=== PATIENT | male | born 1960 | race Caucasian/White ===

== ENCOUNTER → 2021-01-20 09:04 | Outpatient (CLI) | payer BC, SELFPAY ==
[2021-01-20 09:44] LABS: Add Manual Diff / Slide Review NO; Basophils Absolute Auto 0 /uL (0-100); Basophils Percent Auto 0.6 % (0-2); Eosinophils Absolute Auto 300 /uL (0-450); Eosinophils Percent Auto 5.2 % (2-4); Hemoglobin 15.1 g/dL (13.5-17.5); Lymphocytes Absolute Auto 2200 /uL (1100-4500); Mean Corpuscular HGB Conc 34.3 % (30-36); Mean Corpuscular Hemoglobin 31.4 PG (26-34); Mean Corpuscular Volume 91.4 fL (80-100); Monocytes Absolute Auto 500 /uL (0-900); Monocytes Percent Auto 9.2 % (3-14); Neutrophils Absolute Auto 2400 /uL (1500-7000); Platelet Count 165 X10^3/uL (150-400); Red Blood Cell Count 4.81 X10^6/uL (4.5-5.9); White Blood Cell Count 5.4 X10^3/uL (4.5-11.0)
[2021-01-20 10:54] LABS: Alanine Aminotransferase 24 IU/L (<50); Albumin 4.5 g/dL (3.5-5.0); Alkaline Phosphatase 45 U/L (38-126); Aspartate Aminotransferase 27 IU/L (17-59); BUN Creatinine Ratio 19.5 (6-22); Bilirubin Total 0.9 mg/dL (0.2-1.3); Blood Urea Nitrogen 17 mg/dL (9-20); Calcium 9.6 mg/dL (8.4-10.2); Carbon Dioxide 31 mmol/L (22-32); Chloride 103 mmol/L (98-107); Cholesterol 227 mg/dL (140-199); Estimated Glomerular Filt Rate > 60.0 mL/min (>60); Globulin 2.3 g/dL (1.7-4.1); Glucose 98 mg/dL (70-100); HDL Cholesterol 77 mg/dL (40-60); HEMOLYSIS < 15 (0-50); LDL Cholesterol Calculated 139 mg/dL (<100); Sodium 138 mmol/L (137-145); Total Protein 6.8 g/dL (6.3-8.2); Triglycerides 53 mg/dL (35-150)
[2021-01-20 11:13] LABS: Prostate Specific Antigen Scrn 1.07 ng/mL (0.1-4.0)
== END ==
PROVIDERS: PCP Family Medicine; Referring Provider Family Medicine; Visit Provider Family Medicine
DX: E78.5 Hyperlipidemia, unspecified (principal); Z12.5 Encounter for screening for malignant neoplasm of prostate; Z78.9 Other specified health status
CPT/HCPCS: 36415; 80053; 80061; 85025; G0103

== ENCOUNTER 2021-05-18 13:23 | Emergency (ER) | payer OTHER, SELFPAY ==
[2021-05-18] VITALS (8 sets, daily range): BP systolic 129–157; BP diastolic 68–83; PULSE 42–47; RESP 15–18; TEMP 36.1; O2SAT 97–100; BMI 21.5
--- NOTE | 2021-05-18 16:13 | ED_ITS ---
HPI - Neck Pain/Injury General Chief Complaint: Neck Pain/Injury Stated Complaint: pain in left side neck Time Seen by Provider: 05/18/21 16:02 Mode of arrival: Ambulatory History of Present Illness HPI Narrative: 60M nonsmoker with noncontributory medical history presents with left lateral neck pain gradually worsening over the past few days. He denies any runny nose, fever or chills. He denies any injury or suspicion of esophageal foreign body. He states that he has worsening pain with palpation and increasing pain when attempting to swallow. He denies any difficulty controlling secretions and has had no nausea or vomiting. He has had no chest pain or shortness of breath. He denies any history of alcohol or street drugs Related Data Previous Rx's Medication Instructions Recorded avanafil 200 mg tablet (Stendra) 50 mg PO DAILY PRN #3 tab 01/12/21 amoxicillin 875 mg-potassium 1 tab PO Q12H #20 tab 05/18/21 clavulanate 125 mg tablet Allergies Allergy/AdvReac Type Severity Reaction Status Date / Time No Known Drug Allergies Allergy Unverified 01/12/21 11:13 Review of Systems Review of Systems Narrative: GENERAL: Denies chills, fatigue, malaise, fever, sweats. HEENT: See HPI RESPIRATORY: Denies dyspnea, cough, wheezing, hemoptysis, sputum. CARDIOVASCULAR: Denies chest pain, palpitations, orthopnea, edema, GASTROINTESTINAL: Denies nausea, vomiting, abdominal pain, diarrhea, constipation, melena. : Denies dysuria, frequency, incontinence, hematuria, urinary retention. MUSCULOSKELETAL: denies weakness, joint pain, or bony pain SKIN: Denies rash, skin lesions, or other NEUROLOGIC: Denies weakness, headache, numbness, change in speech, confusion, seizures, incoordination. PSYCHIATRIC: No concerning psychosocial issues. 12 point review of systems is negative except for those stated above Patient History Medical History Chicken pox Erectile dysfunction Hearing loss Shoulder pain (~2019) Vegetarian diet Surgical History Anesthesia History of appendectomy (~1996) Family History Father Diabetes mellitus History of heart disease Hypertension Parkinson's disease Mother Hypertension Brother Hypertension Diabetes mellitus Brother Hypertension Diabetes mellitus Social History Smoking Status: Never smoker Smoking Status: Never smoker alcohol intake frequency: a few times a week Substance Use Type: does not use Exam Narrative Exam Narrative: GENERAL: [60 year old patient appears stated age. Well-developed patient, in mild distress. HEAD: Atraumatic. Normocephalic. EYES: Pupils equal round and reactive. Extraocular motions intact. No scleral icterus. No injection or drainage. ENT: Nose without bleeding, purulent drainage. Throat without erythema, tonsillar hypertrophy or exudate. Airway patent. NECK: Trachea midline. Left lateral neck tenderness, no obvious palpable mass, fluctuance no erythema or warmth. CARDIOVASCULAR: Regular rate and rhythm without murmurs, gallops, or rubs. RESPIRATORY: Clear to auscultation. Breath sounds equal bilaterally. No wheezes, rales, or rhonchi. GASTROINTESTINAL: Abdomen soft, non-tender, nondistended. EXTREMITIES: No edema or joint tenderness. BACK: Nontender without deformity or crepitance. No flank tenderness. NEURO: AOx3. SKIN: No rash or erythema of visible areas Initial Vital Signs Initial Vital Signs: Vital Signs Temperature 96.9 F L 05/18/21 13:34 Pulse Rate 45 L 05/18/21 13:34 Respiratory Rate 16 05/18/21 13:34 Blood Pressure 157/83 H 05/18/21 13:34 Pulse Oximetry 100 05/18/21 13:34 Course Orders Ordered: ED Orders 05/18/21 16:14 Strep Grp A by PCR Rapid Stat 05/18/21 16:48 CT soft tissue neck w con Stat 05/18/21 16:54 BMP [Basic Metabolic Panel] Stat CBC Auto Diff [Complete Blood Count AUTO DIFF] Stat Discontinued Medications Dexamethasone (Dexamethasone 10 Mg/Ml Vial) 20 mg PO NOW ONE Stop: 05/18/21 19:06 Last Admin: 05/18/21 19:07 Dose: 20 mg Documented by: DARRIN Sodium Chloride (Normal Saline 0.9%) 1,000 mls @ 1,000 mls/hr IV BOLUS ONE Stop: 05/18/21 17:47 Last Infusion: 05/18/21 18:26 Dose: 0 mls/hr Documented by: Admin: 05/18/21 17:02 Dose: 1,000 mls/hr Documented by: DARRIN Dexamethasone 20 mg/ Sodium (Chloride) 52 mls @ 208 mls/hr IV NOW ONE Stop: 05/18/21 18:42 Last Admin: 05/18/21 19:05 Dose: Not Given Documented by: DARRIN Ketorolac Tromethamine (Ketorolac 30 Mg/Ml Vial) 15 mg IV NOW ONE Stop: 05/18/21 16:49 Last Admin: 05/18/21 17:02 Dose: 15 mg Documented by: DARRIN Vital Signs Vital signs: Vital Signs - 8 hr 05/18/21 16:55 05/18/21 16:56 05/18/21 17:00 Pulse Rate 46 L 45 L 42 L Respiratory Rate 18 18 Blood Pressure 138/68 129/71 Pulse Oximetry 98 100 100 05/18/21 17:30 05/18/21 17:31 05/18/21 18:00 Pulse Rate 46 L 46 L 44 L Respiratory Rate 15 15 Blood Pressure 152/75 H Pulse Oximetry 100 97 100 05/18/21 19:00 Pulse Rate 47 L Respiratory Rate 16 Blood Pressure 146/77 H Pulse Oximetry 100 MDM - Neck Pain/Injury Lab Data Result diagrams: 05/18/21 16:54 05/18/21 16:54 Labs: Lab Results 05/18/21 05/18/21 05/18/21 Range/Units 16:14 16:54 16:54 WBC 6.3 (4.5-11.0) X10^3/uL RBC 4.62 (4.5-5.9) X10^6/uL Hgb 14.5 (13.5-17.5) g/dL Hct 42.1 (41-53) % MCV 91.3 (80-100) fL MCH 31.5 (26-34) PG MCHC 34.5 (30-36) % RDW 13.0 (11.6-14.8) % Plt Count 174 (150-400) X10^3/uL Neut % (Auto) 51.7 (50-75) % Lymph % (Auto) 34.0 (25-40) % Sunflower % (Auto) 7.3 (3-14) % Eos % (Auto) 6.4 H (2-4) % Baso % (Auto) 0.6 (0-2) % Neut # (Auto) 3300 (9094-9525) /uL Lymph # (Auto) 2100 (1240-3957) /uL Sunflower # (Auto) 500 (0-900) /uL Eos # (Auto) 400 (0-450) /uL Baso # (Auto) 0 (0-100) /uL Sodium 139 (137-145) mmol/L Potassium 4.2 (3.4-5.1) mmol/L Chloride 104 (98-107) mmol/L Carbon Dioxide 29 (22-32) mmol/L BUN 19 (9-20) mg/dL Creatinine 0.85 (0.66-1.25) mg/dL Estimated GFR > 60.0 (>60) mL/min BUN/Creatinine Ratio 22.4 H (6-22) Glucose 86 (70-100) mg/dL Calcium 9.3 (8.4-10.2) mg/dL Group A Strep (PCR) Negative (Negative) Imaging Data CT Soft Tissue Neck: Radiologist's Impression: [place] [address] CT Scan Report Signed Patient: Tacho Zuniga MR#: [id number] : 1960 Acct:[id number] Age/Sex: 60 / M Date of Service: 05/18/21 Loc: Accession Number: [id number] ?? Procedure: CT soft tissue neck w con Ordering Provider: Minesh Joshi D.O. PROCEDURE:? CT SOFT TISSUE NECK W CON ? INDICATIONS:? pain left nieck, swelling, hard to swallow, fullness ? TECHNIQUE:? After the administration of intravenous contrast, 3.0 mm axial sections acquired from the sella to the aortic arch.? Additional oblique axial 3.0 mm sections acquired through the pharynx.? 3 mm thick coronal and sagittal reformats were generated.? For radiation dose reduction, the following was used:? automated exposure control.? ? COMPARISON:? None. ? FINDINGS:? Image quality:? Excellent.? ? Lymph nodes:? No enlarged lymph nodes seen throughout the neck.? ? Vessels:? Visualized vasculature appears patent.? ? Neck spaces:? At the level of the false vocal folds, there is a possible mass lesion arising from the posterior pharyngeal wall extending to the superior process of the aryepiglottic folds and arytenoid cartilage measuring 1.2 x 1.5 by 1.3 cm causing narrowing of the airway posteriorly.? ? The oropharynx, nasopharynx, and pharynx demonstrate no other mucosal lesions.? The vocal cords, pyriform sinuses, epiglottis, vallecula, and tongue base all appear normal.? Extramucosal spaces appear unremarkable.? ? Glands:? The parotid and submandibular glands appear normal.? Thyroid gland is within normal limits..? ? Miscellaneous:? Visualized brain and orbits appear normal.? Lung apices appear clear.? Superficial soft tissues appear normal. ? Bones:? No suspicious bony lesions.? Visualized sinuses and mastoids appear unremarkable. ? ? ? IMPRESSION:? ? 1. Findings suspicious for posterior laryngeal mass measuring up to 1.5 cm and narrowing the airway posteriorly. ? 2. No evidence of adenopathy. ? 3. No superficial mass in the area of indicated fullness. ? 4. ENT consult and direct visualization is recommended.? Dictated by: Litzy Blair M.D. on 05/18/2021 at 18:00 ? ? Approved by: Litzy Blair M.D. on 05/18/2021 at 18:24 ? MDM Narrative Medical decision making narrative: patient largely healthy baseline presents with presence of increasing pain in left anterior neck over past few days in the absence of injury or systemic findings. Does have some pain on swallowing but controls his secretions and some drink without difficulty. There are no fever or chills and denies any weakness. He has no trouble breathing whatsoever. Imaging demonstrates a 1.5 cm mass. Discussion with ENT recommends treatment with steroids and antibiotics and close follow-up for scope and possible biopsy patient understands the plan and diagnosis. He understands the inherent difficulty in distinguishing between infectious and neoplastic versus other as well as goal to treat for infectious and inflammatory symptoms initially and follow-up closely. He has been given extensive return precautions and understands this as evidenced by his ability to verbalize them back. Questions answered to his apparent satisfaction Discharge Plan Departure Patient Disposition: Home Clinical Impression: Throat mass Activity Restrictions/Additional Instructions: *You have been diagnosed with [throat mass, at this time it is unclear if this is abscess or neoplasm. As we discussed we will initiate steroids and antibiotics today and he will follow closely with local [facility] whose information as below *What to do: *Please continue to take your regular medications as directed. [x] New medication prescriptions sent to your pharmacy: [ [facility]] [ ] New medication written as a paper prescription [ ] No new medications given *Please follow up with Dr. Dwason at [facility], call for an appointment on Friday morning. Let them know you were seen in the Emergency Department and that we ask that you be seen in follow up. We will electronically transmit a record of today's note *Return to Emergency Department if you should have any new, worsening or concerning symptoms, such as difficulty breathing, inability to swallow or control your secretions, or other bothersome symptoms. Prescriptions: New amoxicillin-pot clavulanate 875-125 mg tablet 1 tab PO Q12H Qty: 20 0RF No Action Stendra 200 mg tablet 50 mg PO DAILY PRN (Reason: sexual activity) Qty: 3 3RF Referrals: Davon Dawson MD [Physician] - Telly Barnett MD [Primary Care Provider] -
[2021-05-18 16:47] LABS: Strep Grp A by PCR Rapid Negative (Negative)
--- NOTE | 2021-05-18 16:48 | DI.CT.S_ITS ---
PROCEDURE: CT SOFT TISSUE NECK W CON INDICATIONS: pain left nieck, swelling, hard to swallow, fullness TECHNIQUE: After the administration of intravenous contrast, 3.0 mm axial sections acquired from the sella to the aortic arch. Additional oblique axial 3.0 mm sections acquired through the pharynx. 3 mm thick coronal and sagittal reformats were generated. For radiation dose reduction, the following was used: automated exposure control. COMPARISON: None. FINDINGS: Image quality: Excellent. Lymph nodes: No enlarged lymph nodes seen throughout the neck. Vessels: Visualized vasculature appears patent. Neck spaces: At the level of the false vocal folds, there is a possible mass lesion arising from the posterior pharyngeal wall extending to the superior process of the aryepiglottic folds and arytenoid cartilage measuring 1.2 x 1.5 by 1.3 cm causing narrowing of the airway posteriorly. The oropharynx, nasopharynx, and pharynx demonstrate no other mucosal lesions. The vocal cords, pyriform sinuses, epiglottis, vallecula, and tongue base all appear normal. Extramucosal spaces appear unremarkable. Glands: The parotid and submandibular glands appear normal. Thyroid gland is within normal limits.. Miscellaneous: Visualized brain and orbits appear normal. Lung apices appear clear. Superficial soft tissues appear normal. Bones: No suspicious bony lesions. Visualized sinuses and mastoids appear unremarkable. IMPRESSION: 1. Findings suspicious for posterior laryngeal mass measuring up to 1.5 cm and narrowing the airway posteriorly. 2. No evidence of adenopathy. 3. No superficial mass in the area of indicated fullness. 4. ENT consult and direct visualization is recommended. Dictated by: Litzy Blair M.D. on 05/18/2021 at 18:00 Approved by: Litzy Blair M.D. on 05/18/2021 at 18:24
[2021-05-18 17:00] LABS: Add Manual Diff / Slide Review NO; Basophils Absolute Auto 0 /uL (0-100); Basophils Percent Auto 0.6 % (0-2); Eosinophils Absolute Auto 400 /uL (0-450); Eosinophils Percent Auto 6.4 % (2-4); Hematocrit 42.1 % (41-53); Hemoglobin 14.5 g/dL (13.5-17.5); Lymphocytes Absolute Auto 2100 /uL (1100-4500); Mean Corpuscular HGB Conc 34.5 % (30-36); Mean Corpuscular Hemoglobin 31.5 PG (26-34); Mean Corpuscular Volume 91.3 fL (80-100); Monocytes Absolute Auto 500 /uL (0-900); Monocytes Percent Auto 7.3 % (3-14); Neutrophils Absolute Auto 3300 /uL (1500-7000); Neutrophils Percent Auto 51.7 % (50-75); Platelet Count 174 X10^3/uL (150-400); Red Blood Cell Count 4.62 X10^6/uL (4.5-5.9); White Blood Cell Count 6.3 X10^3/uL (4.5-11.0)
[2021-05-18] MEDS: SODIUM CHLORIDE 0.9% 1,000 ML 1000 ML IV (17:02)
[2021-05-18] MEDS: KETOROLAC 30 MG/ML VIAL 15 MG IV (17:02)
[2021-05-18 17:26] LABS: BUN Creatinine Ratio 22.4 (6-22); Blood Urea Nitrogen 19 mg/dL (9-20); Calcium 9.3 mg/dL (8.4-10.2); Carbon Dioxide 29 mmol/L (22-32); Chloride 104 mmol/L (98-107); Estimated Glomerular Filt Rate > 60.0 mL/min (>60); Glucose 86 mg/dL (70-100); HEMOLYSIS < 15 (0-50); Potassium 4.2 mmol/L (3.4-5.1); Sodium 139 mmol/L (137-145)
[2021-05-18] MEDS: DEXAMETHASONE 10 MG/ML VIAL 20 MG PO (19:07)
== END 2021-05-18 19:08 | disposition home or self-care (01) ==
PROVIDERS: Emergency Provider Emergency Medicine; PCP Family Medicine
DX: J39.2 Other diseases of pharynx (principal)
CPT/HCPCS: 70491; 80048; 85025; 87651; 96361; 96374; 99284; J1100; J1885

== ENCOUNTER → 2022-03-13 07:53 | Outpatient (CLI) | payer OTHER, SELFPAY ==
[2022-03-13 08:35] LABS: Add Manual Diff / Slide Review NO; Basophils Absolute Auto 0 /uL (0-100); Basophils Percent Auto 0.5 % (0-2); Eosinophils Absolute Auto 200 /uL (0-450); Eosinophils Percent Auto 4.8 % (2-4); Hematocrit 43.1 % (41-53); Hemoglobin 14.6 g/dL (13.5-17.5); Lymphocytes Absolute Auto 2100 /uL (1100-4500); Lymphocytes Percent Auto 46.2 % (25-40); Mean Corpuscular HGB Conc 33.8 % (30-36); Mean Corpuscular Hemoglobin 30.9 PG (26-34); Mean Corpuscular Volume 91.5 fL (80-100); Monocytes Absolute Auto 400 /uL (0-900); Monocytes Percent Auto 9.5 % (3-14); Neutrophils Absolute Auto 1800 /uL (1500-7000); Platelet Count 177 X10^3/uL (150-400); Red Blood Cell Count 4.71 X10^6/uL (4.5-5.9); Red Cell Distribution Width 12.9 % (11.6-14.8); White Blood Cell Count 4.6 X10^3/uL (4.5-11.0)
[2022-03-13 09:07] LABS: Alanine Aminotransferase 21 IU/L (<50); Albumin 4.5 g/dL (3.5-5.0); Albumin Globulin Ratio 1.8 (1.0-2.8); Alkaline Phosphatase 49 U/L (38-126); Aspartate Aminotransferase 24 IU/L (17-59); Bilirubin Total 0.6 mg/dL (0.2-1.3); Blood Urea Nitrogen 23 mg/dL (9-20); Calcium 9.2 mg/dL (8.4-10.2); Carbon Dioxide 30 mmol/L (22-32); Chloride 101 mmol/L (98-107); Cholesterol 230 mg/dL (140-199); Estimated Glomerular Filt Rate > 60 mL/min (>60); Globulin 2.5 g/dL (1.7-4.1); Glucose 88 mg/dL (80-110); HDL Cholesterol 71 mg/dL (40-60); HEMOLYSIS < 15 (0-50); LDL Cholesterol Calculated 146 mg/dL (<100); Sodium 141 mmol/L (137-145); Triglycerides 65 mg/dL (35-150)
[2022-03-13 09:08] LABS: Potassium 4.1 mmol/L (3.4-5.1)
[2022-03-13 09:18] LABS: LDL Cholesterol Direct 119 mg/dL (<100)
[2022-03-13 09:37] LABS: Prostate Specific Antigen Scrn 0.998 ng/mL (0.1-4.0)
[2022-03-15 03:37] LABS: Lipoprotein (a) 113.6 nmol/L (<75.0)
== END ==
PROVIDERS: PCP Family Medicine; Referring Provider Family Medicine; Visit Provider Family Medicine
DX: E78.5 Hyperlipidemia, unspecified (principal); N52.9 Male erectile dysfunction, unspecified; Z78.9 Other specified health status; Z12.5 Encounter for screening for malignant neoplasm of prostate
CPT/HCPCS: 36415; 80053; 80061; 82306; 83695; 83721; 85025; G0103

== ENCOUNTER 2022-05-09 07:45 | Day surgery (SDC) | payer OTHER, SELFPAY ==
--- NOTE | 2022-05-09 | PATH_ITS ---
[facility] Accession Number: [id number] No. of containers..01 Tissue . 01 Material submitted: . colon - ASCENDING COLON POLYP . 01 Diagnosis: Ascending Colon, Polyp, Biopsy: Tubular adenoma. [facility] 05/14/2022 0951 Local . 01 Electronically signed: . Adrienne Trotter MD, Pathologist NPI- [id number] . 01 Gross description: . ASCENDING COLON POLYP: Received in formalin are 3 fragment(s) of coleman, soft tissue measuring 0.5 x 0.3 x 0.2 cm to 0.2 x 0.1 x 0.1 cm submitted entirely in 1 cassette(s) /CPE 05/10/2022 0638 Local . 01 Pathologist provided ICD-10: D12.2 . 01 CPT . 378325 Specimen Comment: A courtesy copy of this report has been sent to [phone] Performed at: 01 [facility] [address] [place] [address], [place], [place] [id number] MD Eric Muñoz MD Phone: [phone]
[2022-05-09 07:56] VITALS: BP 125/75; PULSE 58; RESP 16; TEMP 36.6; O2SAT 100; BMI 21.5
--- NOTE | 2022-05-09 08:03 | PM.HP.1 ---
History of Present Illness History of Present Illness Date Patient Seen: 05/09/22 Time Patient Seen: 08:03 Chief complaint: SDC Narrative: Tacho is a 61-year-old man who is here for colonoscopy. His last 1 was 10 years ago and was normal. No family history that he knows of of colon cancer. Patient History Medical History Chicken pox Erectile dysfunction Hearing loss Shoulder pain (~2019) Vegetarian diet Surgical History Anesthesia History of appendectomy (~1996) Family & Social History Family History Father Diabetes mellitus History of heart disease Hypertension Parkinson's disease Mother Hypertension Brother Hypertension Diabetes mellitus Brother Hypertension Diabetes mellitus Tobacco & Substance use: Smoking Status Never smoker alcohol intake frequency a few times a week Substance Use Type does not use Meds Home Medications and Allergies Home Medications Medication Instructions Recorded Confirmed Type sildenafil 25 mg tablet 25 mg PO DAILY #30 tabs 03/12/22 05/09/22 Rx Allergies Allergy/AdvReac Type Severity Reaction Status Date / Time No Known Drug Allergies Allergy Verified 05/09/22 07:52 Exam Const General: healthy appearing Assessment & Plan Assessment and plan (1) Colon cancer screening: Status: Acute Plan We reviewed the risks, benefits and rationale for colonoscopy for colon cancer and he would like to proceed. Time Spent With Patient Critical Care time: I spent a total of [] minutes of critical care time on this patient's care today; this time is exclusive of procedural time.
[2022-05-09] MEDS: LACTATED RINGERS 1,000 ML 42 ML IV (08:07)
--- NOTE | 2022-05-09 08:40 | PM.OP.COLON ---
Operative Date/Time/Diagnoses Date of procedure: 05/09/22 Time of procedure: 08:40 Pre-op diagnosis: Colon cancer screening Post-op diagnosis: same Procedure & Clinicians Study performed: Colonoscopy Same procedure as scheduled: Yes Surgeon: Khalif Patton Procedure Notes Procedure in detail: Surgeon: Khalif Patton MD Anesthesia: Nirali Hoyt CRNA Procedure: The patient was brought to the endoscopy suite, placed in left lateral decubitus position. The patient was connected to monitoring devices. A time-out was performed. Sedation was administered. Once the patient was adequately sedated, a digital rectal exam was performed and was normal. The scope was then inserted and advanced to the cecum where the appendiceal orifice was identified and photographed. The scope was then slowly withdrawn over greater than 6 minutes. The mucosa was thoroughly inspected. There was a 8 mm polyp in the ascending colon removed with a cold snare. The rest of the colon was normal. The scope was retroflexed in the rectum. No other abnormalities were seen. The scope was straightened and removed. The patient was awakened and brought to recovery. Scope withdrawal time: 9 minutes Sedation time: 20 minutes EBL: 2 mL Findings: 8 mm polyp in the ascending colon Post-procedure Follow up: weeks Disposition: PACU
[2022-05-09 08:42] VITALS: BP 103/64; PULSE 60; RESP 15; TEMP 36.6; O2SAT 100
[2022-05-09 08:46] VITALS: BP 101/68; PULSE 58; RESP 14; O2SAT 100
[2022-05-09 08:50] VITALS: BP 109/63; PULSE 57; RESP 16; TEMP 36.7; O2SAT 100
[2022-05-09 08:57] VITALS: BP 112/68; PULSE 54; RESP 16; TEMP 36.6; O2SAT 100
== END 2022-05-09 09:11 | disposition home or self-care (01) ==
PROVIDERS: PCP Family Medicine; Referring Provider Surgery; Visit Provider Surgery
PROC: 0DJD8ZZ Inspection of Lower Intestinal Tract, Via Natural or Artificial Opening Endoscopic (ICD-10-PCS; CPT 45378; principal; 2022-05-09 08:45)
DX: Z12.11 Encounter for screening for malignant neoplasm of colon (principal); D12.2 Benign neoplasm of ascending colon
CPT/HCPCS: 45385; J2704

== ENCOUNTER → 2022-10-11 07:47 | Outpatient (CLI) | payer OTHER, SELFPAY ==
[2022-10-11 09:23] LABS: Cholesterol 213 mg/dL (140-199); HDL Cholesterol 69 mg/dL (40-60); LDL Cholesterol Calculated 126 mg/dL (<100); Triglycerides 90 mg/dL (35-150)
== END ==
PROVIDERS: PCP Family Medicine; Referring Provider Family Medicine; Visit Provider Family Medicine
DX: E78.5 Hyperlipidemia, unspecified (principal); E78.9 Disorder of lipoprotein metabolism, unspecified
CPT/HCPCS: 36415; 80061; 83704

== ENCOUNTER → 2022-10-29 07:34 | Outpatient (CLI) | payer OTHER, SELFPAY ==
[2022-10-29 10:06] LABS: Alanine Aminotransferase 23 IU/L (<50)
[2022-10-29 19:05] LABS: LDL Cholesterol Direct 120 mg/dL (<100)
[2022-10-31 04:09] LABS: Lipoprotein (a) 132.7 nmol/L (<75.0)
== END ==
PROVIDERS: PCP Family Medicine; Referring Provider Family Medicine; Visit Provider Family Medicine
DX: E78.9 Disorder of lipoprotein metabolism, unspecified (principal)
CPT/HCPCS: 83695; 83721; 84460

== ENCOUNTER → 2023-03-07 07:18 | Outpatient (CLI) | payer OTHER, SELFPAY ==
[2023-03-07 09:22] LABS: Free T4, Direct Thyroxine 0.98 ng/dL (0.78-2.19)
[2023-03-07 09:36] LABS: Thyroid Stimulating Hormone 4.22 uIU/mL (0.47-4.68)
[2023-03-10 08:16] LABS: Cholesterol, Total 206 mg/dL (100-199); HDL-Cholesterol 73 mg/dL (>39); HDL-Particle (Total) 30.9 umol/L (>=30.5); LDL Particle 1286 nmol/L (<1000); LDL Size 21.6 nm (>20.5); LDL-Cholsterol 119 mg/dL (0-99); LP-IR Score <25 (<=45); Small LDL- Particle 223 nmol/L (<=527); Triglycerides 76 mg/dL (0-149)
== END ==
PROVIDERS: PCP Family Medicine; Referring Provider Internal Medicine Cardiovascular Disease; Visit Provider Internal Medicine Cardiovascular Disease
DX: E78.5 Hyperlipidemia, unspecified (principal)
CPT/HCPCS: 36415; 80061; 83704; 84439; 84443

== ENCOUNTER 2024-06-29 09:55 | Emergency (ER) | payer BC, SELFPAY ==
[2024-06-29] VITALS (10 sets, daily range): BP systolic 106–132; BP diastolic 56–68; PULSE 44–51; RESP 14–20; TEMP 36.2; O2SAT 99–100; BMI 21.5
--- NOTE | 2024-06-29 10:26 | DI.RAD.S_ITS ---
PROCEDURE: XR CHEST 1V INDICATIONS: chest pain TECHNIQUE: One view of the chest was acquired. COMPARISON: None. FINDINGS: Surgical changes and devices: EKG leads overlie the chest. Lungs and pleura: There is linear parenchymal stranding at the left lung base, compatible with atelectasis or scarring. The lungs are otherwise clear. No pleural effusions or pneumothorax. Mediastinum: Mediastinal contours appear normal. Heart size is normal. Bones and chest wall: No suspicious bony lesions. Overlying soft tissues appear unremarkable. IMPRESSION: No acute cardiopulmonary abnormality is seen. Dictated by: Glenroy Lambert M.D. on 06/29/2024 at 11:23 Approved by: Glenroy Lambert M.D. on 06/29/2024 at 11:30
--- NOTE | 2024-06-29 10:26 | EKG_ITS ---
[address] [address] Test Date: 2024-06-29 Pat Name: Tacho Zuniga Department: Room: Gender: Male Tennis Coach: TRISTAN : 1960 Requested By: Order Number: [id number] Reading MD: Cj Amos Measurements Intervals [place] Rate: 45 P: 50 DC: 138 QRS: 81 QRSD: 106 T: -26 QT: 466 QTc: 403 Interpretive Statements Sinus bradycardia RSR' or QR pattern in V1 suggests right ventricular conduction delay T wave abnormality, consider inferior ischemia Electronically Signed On 06-30-2024 17:39:40 PDT by Cj Amos
--- NOTE | 2024-06-29 10:53 | ED.SYNCOPE ---
HPI - Syncope General Chief Complaint: Syncope Stated Complaint: Right side stomach pain , passed out last night Time Seen by Provider: 06/29/24 10:28 Source: patient Mode of arrival: Ambulatory History of Present Illness HPI narrative: 63-year-old gentleman history of appendectomy, dyslipidemia, erectile dysfunction, had 2 syncopal episodes last evening but all started with right-sided abdominal pain whereby he broke out soaked in his P [place] for which the pain then subsided. He had to go urinate and he believes he passed out after he urinated. Pt al morning when he got up from the bed he was found on the ground again. He is now complaining of soreness in the back of the head but his abdominal pain has resolved. He did take Tadafil last evening. Patient denies chest pain shortness of breath dyspnea on exertion leg swelling or leg pain or recent long-distance travel or any hx of dvt or PE. Other than what is stated 14 point review of system is negative. Related Data Previous Rx's Medication Instructions Recorded tadalafil 2.5 mg tablet 2.5 mg PO DAILY PRN sexual 01/05/24 activity #90 tabs Allergies Allergy/AdvReac Type Severity Reaction Status Date / Time No Known Drug Allergies Allergy Verified 06/29/24 10:16 Review of Systems Review of Systems ROS Unobtainable: All systems reviewed & are unremarkable except as noted in HPI and below Patient History Medical History Chicken pox Erectile dysfunction Hearing loss Shoulder pain (~2019) Vegetarian diet Surgical History Anesthesia History of appendectomy (~1996) Family History Father Diabetes mellitus History of heart disease Hypertension Parkinson's disease Mother Hypertension Brother Hypertension Diabetes mellitus Brother Hypertension Diabetes mellitus Social History household members: spouse alcohol intake: current alcohol intake frequency: a few times a week Exam Narrative Exam Narrative: GENERAL: [63] year old patient appears stated age. Well-developed patient, in mild distress. HEAD: Atraumatic. Normocephalic. EYES: Pupils equal round and reactive. Extraocular motions intact. No scleral icterus. No injection or drainage. ENT: Nose without bleeding, purulent drainage. Throat without erythema, tonsillar hypertrophy or exudate. Airway patent. NECK: Trachea midline. Non tender CARDIOVASCULAR: Regular rate and rhythm without murmurs, gallops, or rubs. RESPIRATORY: Clear to auscultation. Breath sounds equal bilaterally. No wheezes, rales, or rhonchi. GASTROINTESTINAL: Abdomen soft, non-tender, nondistended. EXTREMITIES: No edema or joint tenderness. BACK: Nontender without deformity or crepitance. No flank tenderness. NEURO: AOx3. Nonfocal neuro exam gcs 15/ neg romberg, F to N test intact, Opposite heel to cota intact SKIN: No rash or erythema of visible areas Initial Vital Signs Initial Vital Signs: Vital Signs Temperature 97.1 F L 06/29/24 10:16 Pulse Rate 51 L 06/29/24 10:16 Respiratory Rate 14 06/29/24 10:16 Blood Pressure 114/59 L 06/29/24 10:16 Pulse Oximetry 100 06/29/24 10:16 Oxygen Delivery Method Room Air 06/29/24 10:16 Course Orders Ordered: ED Orders 06/29/24 10:26 XR chest 1V Stat EKG-12 Lead Stat 06/29/24 10:45 Complete Blood Count AUTO DIFF Stat Comprehensive Metabolic Panel Stat Lipase Stat Magnesium Stat NT-proBNP (BNP-Adult 18+) Stat PTT Partial Thromboplastin James Stat Prothrombin Time INR Stat TSH [Thyroid Stimulating Hormone] Stat Troponin & CK Cardiac Panel Stat 06/29/24 10:53 CT head/brain wo con Stat 06/29/24 10:54 CT abdomen pelvis w con Stat Discontinued Medications Lactated Ringer's (Lactated Ringers) 500 mls @ 1,000 mls/hr IV BOLUS ONE Stop: 06/29/24 11:22 Last Admin: 06/29/24 11:17 Dose: 1,000 mls/hr Documented By: LYNN Vital Signs Vital signs: Vital Signs - 8 hr 06/29/24 10:16 06/29/24 10:30 06/29/24 10:30 Temperature 97.1 F L Pulse Rate 51 L 47 L Pulse Rate [Orthostatic Lying] Pulse Rate [Orthostatic Sitting] Pulse Rate [Orthostatic Standing] Respiratory Rate 14 Blood Pressure 114/59 L 128/61 Blood Pressure [Orthostatic Lying] Blood Pressure [Orthostatic Sitting] Blood Pressure [Orthostatic Standing] Pulse Oximetry 100 100 Oxygen Delivery Method Room Air 06/29/24 11:00 06/29/24 11:00 06/29/24 11:23 Temperature Pulse Rate 45 L Pulse Rate [Orthostatic Lying] 46 L Pulse Rate [Orthostatic Sitting] 47 L Pulse Rate [Orthostatic Standing] 50 L Respiratory Rate Blood Pressure 114/58 L Blood Pressure [Orthostatic Lying] 111/57 L Blood Pressure [Orthostatic Sitting] 117/58 L Blood Pressure [Orthostatic Standing] 132/66 Pulse Oximetry 100 Oxygen Delivery Method MDM - Syncope Lab Data 06/29/24 10:45 06/29/24 10:45 Labs: Lab Results 06/29/24 Range/Units 10:45 WBC 5.6 (4.5-11.0) X10^3/uL RBC 4.59 (4.5-5.9) X10^6/uL Hgb 14.7 (13.5-17.5) g/dL Hct 42.6 (41-53) % MCV 92.9 (80-100) fL MCH 32.0 (26-34) PG MCHC 34.5 (30-36) % RDW 12.8 (11.6-14.8) % Plt Count 159 (150-400) X10^3/uL Neut % (Auto) 65.0 (50-75) % Lymph % (Auto) 26.7 (25-40) % [place] % (Auto) 6.9 (3-14) % Eos % (Auto) 0.8 L (2-4) % Baso % (Auto) 0.6 (0-2) % Neut # (Auto) 3600 (4561-9041) /uL Lymph # (Auto) 1500 (7800-7236) /uL [place] # (Auto) 400 (0-900) /uL Eos # (Auto) 0 (0-450) /uL Baso # (Auto) 0 (0-100) /uL PT 10.5 (9.4-12.5) SECONDS INR 0.9 (0.9-1.3) APTT 35 (25.1-36.5) SECONDS Sodium 137 (137-145) mmol/L Potassium 4.4 (3.4-5.1) mmol/L Chloride 102 (98-107) mmol/L Carbon Dioxide 29 (22-32) mmol/L BUN 22 H (9-20) mg/dL Creatinine 0.94 (0.66-1.25) mg/dL Estimated GFR > 60 (>60) mL/min BUN/Creatinine Ratio 23.4 H (6-22) Glucose 110 H (70-99) mg/dL Calcium 9.3 (8.4-10.2) mg/dL Magnesium 2.0 (1.6-2.3) mg/dL Total Bilirubin 1.1 (0.2-1.3) mg/dL AST 33 (17-59) IU/L ALT 31 (<50) IU/L Alkaline Phosphatase 57 (38-126) U/L Total Creatine Kinase 105 (55-170) U/L Troponin I < 0.012 (0.01-0.034) ng/mL NT-Pro-B Natriuret Pep 175 H (<125) pg/mL Total Protein 7.0 (6.3-8.2) g/dL Albumin 4.6 (3.5-5.0) g/dL Globulin 2.4 (1.7-4.1) g/dL Albumin/Globulin Ratio 1.9 (1.0-2.8) Lipase 49 (23-300) U/L Urine Dip Bedside Urine Glucose Negative Bedside Urine Bilirubin - Negative Bedside Urine Ketone - Negative Urine Specific [place] 1.005 Bedside Urine Occult Blood - Negative Bedside Urine pH 8.5 Bedside Urine Protein +/- 15 Bedside Urine Urobilinogen - Negative Bedside Urine Nitrite - Negative Bedside Urine Leukocytes - Negative Esterase Imaging Data CT scan - head: Radiologist's Impression: Patient: Tacho Zuniga MR#: [id number] : 1960 Acct:[id number] Age/Sex: 63 / M Date of Service: 06/29/24 Loc: ED Accession Number: [id number] Procedure: CT head/brain wo con Ordering Provider: Ulysses Guy D.O. PROCEDURE: CT HEAD/BRAIN WO CON INDICATIONS: syncope/ headache TECHNIQUE: Noncontrast 4.5 mm thick angled axial sections acquired from the foramen magnum to the vertex, with coronal and sagittal reformats. For radiation dose reduction, the following was used: automated exposure control, adjustment of mA and/or kV according to patient size. COMPARISON: None. FINDINGS: Image quality: Diagnostic. CSF spaces: Basal cisterns are patent. No extra-axial fluid collections. Ventricles are normal in size and shape. Brain: No midline shift. No intracranial mass effect or hemorrhage. Dale-white matter interface is normal. Skull and face: Calvarium and visualized facial bones are intact, without suspicious lesions. Sinuses: Visualized sinuses and mastoids are clear. IMPRESSION: No acute intracranial pathology. Dictated by: Mirza Wesley M.D. on 06/29/2024 at 11:25 Approved by: Mirza Wesley M.D. on 06/29/2024 at 11:27 [place] [address] CT Scan Report Signed Patient: Tacho Zuniga MR#: [id number] : 1960 Acct:[id number] Age/Sex: 63 / M Date of Service: 06/29/24 Loc: ED Accession Number: [id number] Procedure: CT abdomen pelvis w con Ordering Provider: Ulysses Guy D.O. PROCEDURE: CT ABDOMEN PELVIS W CON INDICATIONS: abd pain TECHNIQUE: After the administration of intravenous contrast, axial sections acquired from the lung bases to the pubic symphysis. Coronal and sagittal reformats were performed. For radiation dose reduction, the following was used: automated exposure control, adjustment of mA and/or kV according to patient size. COMPARISON: None. FINDINGS: Image quality: Diagnostic. Lower Chest: No significant findings. ABDOMEN: Liver: No solid mass. Gallbladder: Calcified gallstone. No gallbladder wall thickening or gallbladder distention. Biliary ducts: No biliary dilation. Pancreas: No ductal dilation. Spleen: Size is within normal limits. Adrenal Glands: No adrenal nodules. Kidneys and Ureters: No hydronephrosis. No solid mass. No complex renal cystic lesion which requires follow up. Stomach and Bowel: Normal colonic caliber, without significant wall thickening. Large diffuse fecal load. Peritoneum: No abnormal intraperitoneal fluid. No free air. Ventral Wall: No significant ventral hernia. Abdominal Nodes: No retroperitoneal or mesenteric adenopathy by size criteria. Vessels: Aorta and inferior vena cava are normal in size. PELVIS: Pelvic Organs: Unremarkable. Bladder: No bladder wall thickening, accounting for underdistention. Pelvic Nodes: No enlarged lymph nodes. Miscellaneous: No inguinal hernias are seen. Bones: No aggressive osseous abnormality. IMPRESSION: 1. No acute abdominal process noted. 2. Cholelithiasis. 3. Large fecal load. Dictated by: Mirza Wesley M.D. on 06/29/2024 at 11:27 Approved by: Mirza Wesley M.D. on 06/29/2024 at 11:29 ECG Data Interpretation: Sinus Rafael Hr 45 DC 138 QRS [address]-t wave change No previous ekg to compare against MDM Narrative Medical decision making narrative: All lab work vital signs nurse triage note medication list previous ER visits all reviewed. Patient given normal saline 1 L bolus. Patient is alert oriented x4 GCS of 15 nonfocal neuro exam. Differential diagnosis includes vasovagal syncope dehydration orthostatic hypotension ED meds side-effect symptomatic bradycardia subdural hemorrhage subarachnoid hemorrhage PE. Patient was offered medicines for stool softeners but patient declined. Patient will follow up with PCP in 1-2 weeks for follow up care. Discharge Plan Departure Patient Disposition: Home Clinical Impression: Syncope, vasovagal, Bradycardia, Acute constipation Headache Qualifiers: Headache type: other drug induced headache Intractability: not intractable Qualified Code(s): G44.40 - Drug-induced headache, not elsewhere classified, not intractable Gallstone Qualifiers: Cholecystitis presence: without cholecystitis Biliary obstruction: without biliary obstruction Qualified Code(s): K80.20 - Calculus of gallbladder without cholecystitis without obstruction Instructions: DI for Syncope in Adults (Fainting) Activity Restrictions/Additional Instructions: Return with new or worsening symptoms. Follow up PCP 1-2 weeks for follow up care keep hydrated. Prescriptions: No Action tadalafil 2.5 mg tablet 2.5 mg PO DAILY PRN (Reason: sexual activity) Qty: 90 1RF Rx Instructions: administer approximately 30min before sexual activity; do not use more than 1 dose per 24hrs Referrals: Telly Barnett MD [Primary Care Provider] - Stand Alone Forms: Patient Portal/API/Survey
[2024-06-29 11:14] LABS: Add Manual Diff / Slide Review NO; Basophils Absolute Auto 0 /uL (0-100); Basophils Percent Auto 0.6 % (0-2); Eosinophils Absolute Auto 0 /uL (0-450); Eosinophils Percent Auto 0.8 % (2-4); Hematocrit 42.6 % (41-53); Hemoglobin 14.7 g/dL (13.5-17.5); Lymphocytes Absolute Auto 1500 /uL (1100-4500); Lymphocytes Percent Auto 26.7 % (25-40); Mean Corpuscular HGB Conc 34.5 % (30-36); Mean Corpuscular Volume 92.9 fL (80-100); Monocytes Absolute Auto 400 /uL (0-900); Monocytes Percent Auto 6.9 % (3-14); Neutrophils Absolute Auto 3600 /uL (1500-7000); Platelet Count 159 X10^3/uL (150-400); Red Blood Cell Count 4.59 X10^6/uL (4.5-5.9); Red Cell Distribution Width 12.8 % (11.6-14.8); White Blood Cell Count 5.6 X10^3/uL (4.5-11.0)
[2024-06-29] MEDS: LACTATED RINGERS 500 ML 1000 ML IV (11:17)
[2024-06-29 11:22] LABS: INR 0.9 (0.9-1.3); Prothrombin Time 10.5 SECONDS (9.4-12.5)
[2024-06-29 11:25] LABS: PTT Partial Thromboplastin Tim 35 SECONDS (25.1-36.5)
[2024-06-29 11:28] LABS: Alanine Aminotransferase 31 IU/L (<50); Albumin 4.6 g/dL (3.5-5.0); Albumin Globulin Ratio 1.9 (1.0-2.8); Alkaline Phosphatase 57 U/L (38-126); Aspartate Aminotransferase 33 IU/L (17-59); BUN Creatinine Ratio 23.4 (6-22); Bilirubin Total 1.1 mg/dL (0.2-1.3); Blood Urea Nitrogen 22 mg/dL (9-20); Calcium 9.3 mg/dL (8.4-10.2); Carbon Dioxide 29 mmol/L (22-32); Chloride 102 mmol/L (98-107); Creatine Kinase 105 U/L (55-170); Estimated Glomerular Filt Rate > 60 mL/min (>60); Globulin 2.4 g/dL (1.7-4.1); Glucose 110 mg/dL (70-99); HEMOLYSIS 18 (0-50); Lipase 49 U/L (23-300); Potassium 4.4 mmol/L (3.4-5.1); Sodium 137 mmol/L (137-145)
[2024-06-29 11:39] LABS: NT-proBNP (BNP-Adult 18+) 175 pg/mL (<125); Troponin I < 0.012 ng/mL (0.01-0.034)
[2024-06-29 11:58] LABS: Thyroid Stimulating Hormone 2.34 uIU/mL (0.47-4.68)
== END 2024-06-29 12:29 | disposition home or self-care (01) ==
PROVIDERS: Emergency Provider Family Medicine; PCP Family Medicine
DX: R55 Syncope and collapse (principal); R00.1 Bradycardia, unspecified; G44.40 Drug-induced headache, not elsewhere classified, not intractable; K59.00 Constipation, unspecified; K80.20 Calculus of gallbladder without cholecystitis without obstruction
CPT/HCPCS: 36415; 70450; 71045; 74177; 80053; 81003; 82550; 83690; 83735; 83880; 84443; 84484; 85025; 85610; 85730; 93005; 96360; 99284; Q9967

== ENCOUNTER → 2024-07-27 06:59 | Outpatient (CLI) | payer BC, SELFPAY ==
[2024-07-27 08:12] LABS: Cholesterol 209 mg/dL (140-199); HDL Cholesterol 72 mg/dL (40-60); LDL Cholesterol Calculated 113 mg/dL (<100); Triglycerides 119 mg/dL (35-150)
[2024-07-27 08:23] LABS: LDL Cholesterol Direct 90 mg/dL (<100)
[2024-07-27 08:28] LABS: Vitamin D 25 Hydroxy (D3) 40.8 ng/mL (30.0-100.0)
[2024-07-27 08:43] LABS: Prostate Specific Antigen Scrn 1.04 ng/mL (0.1-4.0)
[2024-07-29 16:09] LABS: Lipoprotein (a) 109.6 nmol/L (<75.0)
== END ==
PROVIDERS: PCP Family Medicine; Referring Provider Family Medicine; Visit Provider Family Medicine
DX: Z12.5 Encounter for screening for malignant neoplasm of prostate (principal); E78.5 Hyperlipidemia, unspecified; E55.9 Vitamin D deficiency, unspecified; Z78.9 Other specified health status
CPT/HCPCS: 36415; 80061; 82306; 83695; 83721; G0103